=== PATIENT | male | born 1970 | race Caucasian/White ===

== ENCOUNTER 2017-03-15 14:05 | Emergency (ER) | payer MEDICAID, OTHER ==
[~2017-03-15] VITALS: Wt 98.8 kg
[2017-03-15] MEDS ORDERED: ASPIRIN 325 MG TAB PO STA (18:58)
--- NOTE | 2017-03-15 19:29 | ERA ---
ER Documentation Chief Complaint Date/Time DATE: 03/15/17 TIME: 19:26 Chief Complaint CHEST PAIN X 1 WEEK HPI This is a 46-year-old male with a history of hypertension and hyperlipidemia who is presenting with chest pain, left-sided, nonradiating, sharp and tightening, lasting only a few minutes at a time, waxing and waning without obvious exacerbating or alleviating factors. 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 The patient does not have a history of heart attack or stroke. He has had no diaphoresis. He has had no lightheadedness or dizziness. He has had no nausea or vomiting. He has had no shortness of breath. He has no abdominal pain. He has had no changes to bowel movements urination. ROS All systems reviewed and are negative except as per history of present illness. Medications Home Meds Reported Medications Benazepril Hcl* (Benazepril Hcl*) 10 Mg Tablet, 10 MG PO DAILY, #30 TAB 03/15/17 Allergies Allergies: Coded Allergies: No Known Allergy (Unverified , 03/15/17) PMhx/Soc Medical and Surgical Hx: pt denies Surgical Hx History of Surgery: No Hx Neurological Disorder: No Hx Respiratory Disorders: No Hx Cardiac Disorders: Yes (Pretension, hyperlipidemia) Hx Psychiatric Problems: No Hx Miscellaneous Medical Probl: No Hx Alcohol Use: Yes (Occasional) Hx Substance Use: No Hx Tobacco Use: No FmHx Family History: No coronary disease, No diabetes Physical Exam Vitals Vital Signs Date Time Temp Pulse Resp B/P Pulse Ox O2 Delivery O2 Flow Rate FiO2 03/15/17 21:35 97.9 88 18 133/91 100 Room Air 03/15/17 19:05 Nasal Cannula 2 03/15/17 14:10 98.0 78 18 142/103 99 Physical Exam Const: No apparent distress, well-developed, well-nourished Head: Atraumatic Eyes: Normal Conjunctiva ENT: Normal External Ears, Nose and Mouth. Neck: Full range of motion..~ No meningismus. Resp: Clear to auscultation bilaterally Cardio: Regular rate and rhythm, no murmurs Abd: Soft, non tender, non distended. Normal bowel sounds Skin: No petechiae or rashes Back: No midline or flank tenderness Ext: No cyanosis, or edema Neur: Awake and alert, normal sensation, normal strength Psych: Normal Mood and Affect Result Diagram: 03/15/17192403/15/171924 Results 24 hrs Laboratory Tests Test 03/15/17 19:25 White Blood Count 7.410^3/ul Red Blood Count 4.6310^6/ul Hemoglobin 13.8g/dl Hematocrit 41.6% Mean Corpuscular Volume 89.8fl Mean Corpuscular Hemoglobin 29.8pg Mean Corpuscular Hemoglobin Concent 33.2g/dl Red Cell Distribution Width 12.7% Platelet Count 31238^3/UL Mean Platelet Volume 8.2fl Neutrophils % 53.1% Lymphocytes % 35.8% Monocytes % 7.7% Eosinophils % 2.3% Basophils % 0.8% Nucleated Red Blood Cells % 0.0/100WBC Neutrophils # 3.910^3/ul Lymphocytes # 2.710^3/ul Monocytes # 0.610^3/ul Eosinophils # 0.210^3/ul Basophils # 0.110^3/ul Nucleated Red Blood Cells # 0.010^3/ul Sodium Level 140mmol/L Potassium Level 4.0mmol/L Chloride Level 105mmol/L Carbon Dioxide Level 30mmol/L Anion Gap 9 Blood Urea Nitrogen 18mg/dl Creatinine 0.90mg/dl Glucose Level 76mg/dl Calcium Level 9.3mg/dl Troponin I < 0.012ng/ml Current Medications Medications (Trade) Dose Ordered Sig/Mikala Route PRN Reason Start Time Stop Time Status Last Admin Dose Admin Aspirin (Aspirin) 325 mg ONCE STAT PO 03/15/17 18:58 03/15/17 18:59 DC 03/15/17 19:09 Procedures/MDM [facility] Patient's presentation warrants further investigation. The patient will be evaluated for a cardiac etiology of his symptoms. LABS The patient's blood work was obtained and reviewed. The patient seemed shows no leukocytosis or left shift. The patient is afebrile, and I do not suspect a systemic infection. The patient is mildly anemic today, which does not require emergent intervention. He does not have findings consistent with a symptomatic anemia. The patient's platelet count is unremarkable. The patient's CMP shows no signs of metabolic or electrolyte abnormality. The patient has normal renal function testing. Troponin is negative EKG EKG read by me: Rate/Rhythm: Regular rate and rhythm at a rate of 72 Intervals: Normal CT interval, QRS and QTc. Incomplete right bundle branch block. [place]: Normal Nonspecific T-wave abnormality including T-wave flattening in the inferior and lateral leads Impression: No evidence of ischemia or arrhythmia IMAGING CXR FINDINGS: The lungs are clear. The heart size is normal. There is no pleural effusion. There is no pneumothorax. IMPRESSION: Normal chest radiograph. Electronically viewed and signed by .Sunil Durant MD, MD on 03/15/2017 20:22 TREATMENT/DISPOSITION Patient was given aspirin in the emergency department. His pain completely resolved while in the ER. I will give the patient a heart score of 3 for age, to risk factors and nonspecific repolarization abnormalities. The patient's troponin is negative, and my suspicion for a cardiac etiology is low. This places him at a low risk for an acute coronary syndrome in the next 30 days. The patient will need to follow-up with his primary care physician in 1-3 days. A discussion will need to be had regarding the possibility of an outpatient stress test. At this time, the patient is stable for discharge. He will be given precautions with which to return to the emergency department. Departure Diagnosis: Primary Impression: Chest pain Qualified Code: R07.9 - Chest pain, unspecified type Condition: HERMES Sena MD Mar 15, 2017 19:29
[2017-03-15] MEDS ORDERED: BENA10TA48 PO (19:32)
[2017-03-15 19:49] LABS: BASOPHIL # 0.1 10^3/ul (0.0-0.1); BASOPHILS % 0.8 % (0.0-2.0); EOSINOPHILS # 0.2 10^3/ul (0.0-0.5); EOSINOPHILS % 2.3 % (0.0-7.0); HEMATOCRIT 41.6 % (42.0-52.0); HEMOGLOBIN 13.8 g/dl (14.0-18.0); LYMPHOCYTES # 2.7 10^3/ul (0.8-2.9); LYMPHOCYTES % 35.8 % (15.0-51.0); MEAN CORPUSCULAR HEMOGLOBIN 29.8 pg (29.0-33.0); MEAN CORPUSCULAR HGB CONC 33.2 g/dl (32.0-37.0); MEAN CORPUSCULAR VOLUME 89.8 fl (82.0-101.0); MEAN PLATELET VOLUME 8.2 fl (7.4-10.4); MONOCYTE # 0.6 10^3/ul (0.3-0.9); MONOCYTES % 7.7 % (0.0-11.0); NEUTROPHIL # 3.9 10^3/ul (1.6-7.5); NEUTROPHILS % 53.1 % (39.0-77.0); PLATELET COUNT 265 10^3/UL (140-415); RED BLOOD COUNT 4.63 10^6/ul (4.70-6.10); RED CELL DISTRIBUTION WIDTH 12.7 % (11.5-14.5); WHITE BLOOD COUNT 7.4 10^3/ul (4.8-10.8)
[2017-03-15 20:10] LABS: ANION GAP 9 (8-16); BLOOD UREA NITROGEN 18 mg/dl (7-20); CALCIUM 9.3 mg/dl (8.4-10.2); CARBON DIOXIDE 30 mmol/L (21-31); CHLORIDE 105 mmol/L (97-110); GLUCOSE 76 mg/dl (70-220); SODIUM 140 mmol/L (135-144)
--- NOTE | 2017-03-15 20:22 | RADRPT ---
PROCEDURE: XR Chest. CLINICAL INDICATION: Chest pain. TECHNIQUE: Single frontal view. COMPARISON: None. FINDINGS: The lungs are clear. The heart size is normal. There is no pleural effusion. There is no pneumothorax. IMPRESSION: 1. Normal chest radiograph. RPTAT: QQ .Sunil Durant MD, Date Time Electronically viewed and signed by .Sunil Durant MD, on 03/15/2017 20:22 .R/
[2017-03-15 20:24] LABS: TROPONIN-I < 0.012 ng/ml (0.00-0.12)
[2017-03-15 21:35] VITALS: BP 133/91; PULSE 88; RESP 18; TEMP 97.9
== END 2017-03-15 22:00 | disposition home or self-care (01) ==
LOC: E/R 14:05
DX: R07.9 Chest pain, unspecified (principal); I10 Essential (primary) hypertension
CPT/HCPCS: 36415; 71010; 80048; 84484; 85025; Z7502; Z7610; 93005